=== PATIENT | female | born 1970 | race Caucasian/White ===

== ENCOUNTER → 2020-10-09 | Outpatient (CLI) | payer BC ==
--- NOTE | 2020-10-09 18:52 | RAD ---
XR EXAM OF ANKLE_LEFT 3V History: Reason: LEFT ANKLE PAIN, TWISTED 4-5 WEEKS AGO / Spl. Instructions: / History: Technique: 3 views left ankle Comparison: None. Findings: Healing mildly displaced left distal fibular fracture. There is evidence of adjacent callus formation . Symmetric ankle mortise. No additional fracture. Impression: 1. Healing mildly displaced left distal fibular fracture. Electronically signed by: Howard Curtis DO (10/09/2020 6:49 PM) PRETTY
== END ==
LOC: PMG 18:14
PROVIDERS: ATTEND Nurse Practitioner Family
DX: S82.492D Other fracture of shaft of left fibula, subsequent encounter for closed fracture with routine healing (principal); X58.XXXD Exposure to other specified factors, subsequent encounter
CPT/HCPCS: 73610

== ENCOUNTER → 2020-11-06 | Outpatient (CLI) | payer BC ==
--- NOTE | 2020-11-06 09:57 | RAD ---
EXAMINATION: Right ankle radiograph. VIEWS: 3 views COMPARISON: 5 11/19/2020 INDICATION:50 years, Female, left ankle pain. FINDINGS: No acute fracture, dislocation or subluxation. Redemonstrated healing distal fibular fracture with no rmal anatomic alignment. Adjacent callus formation is identified. Ankle mortise and talar dome are in tact. No soft tissue swelling or joint effusion. IMPRESSION: 1. No new acute osseous process. 2. Healing distal fibular fracture with normal anatomic alignment. Electronically signed by: Jorge Luis Maya MD (11/06/2020 9:55 AM) [facility]
== END ==
LOC: RAD 09:30
PROVIDERS: ATTEND Orthopaedic Surgery
DX: S82.832D Other fracture of upper and lower end of left fibula, subsequent encounter for closed fracture with routine healing (principal); L84 Corns and callosities; X58.XXXD Exposure to other specified factors, subsequent encounter
CPT/HCPCS: 73610